=== PATIENT | male | born 1965 | race Two or more races ===

== ENCOUNTER 2016-09-27 16:54 | Emergency (ER) | payer OTHER ==
[~2016-09-27] VITALS: Ht 172.7 cm; Wt 72.6 kg
--- NOTE | 2016-09-27 17:09 | NUR ---
PRESENTS SELF FOR LEFT SHOULDER PAIN SP FALL-- POSSIBLE DISLOCATION. COMPLAINING OF 710/10 PAIN ON LEFT SHOULDER. DENIES HITTING HEAD. VSS
[2016-09-27] MEDS ORDERED: HYDROMORPHONE 1 MG/1 ML DISP.SYRIN ONE (17:14)
[2016-09-27] MEDS ORDERED: ONDANSETRON HCL/PF 4 MG/2 ML VIAL ONE (17:14)
--- NOTE | 2016-09-27 17:20 | NUR ---
RECEIVED VERBAL ORDER FROM DR. WALKER FOR PROPOFOL. ORDERS CARRIED OUT.
[2016-09-27] MEDS ORDERED: PROPOFOL 40 ML IV ONE (17:23)
[2016-09-27] MEDS ORDERED: HYDROMORPHONE 1 MG/1 ML DISP.SYRIN IV ONE (17:30)
[2016-09-27] MEDS ORDERED: ONDANSETRON HCL/PF 4 MG/2 ML VIAL IV ONE (17:30)
[2016-09-27] MEDS ORDERED: IV NS 0.9% 1,000 ML BAG IV ONE (17:30)
--- NOTE | 2016-09-27 17:50 | NUR ---
PROPOFOL 70MG IVP GIVEN PER MD VERBAL ORDER.
--- NOTE | 2016-09-27 17:53 | NUR ---
PROPOFOL 35MG IVP GIVEN PER MD VERBAL ORDER.
--- NOTE | 2016-09-27 17:57 | NUR ---
PROPOFOL 35MG IVP GIVEN PER MD VERBAL ORDER. WILL FF UP WITH MD TO OUT IN ORDER.
[2016-09-27 19:39] VITALS: BP 137/71
--- NOTE | 2016-09-27 19:39 | NUR ---
Patient discharged to home in stable condition. Written and verbal after care instructions given. Patient verbalizes understanding of instruction.
== END 2016-09-27 19:41 | disposition home or self-care (01) ==
LOC: ER 16:56
DX: S43.005A Unspecified dislocation of left shoulder joint, initial encounter (principal); E86.0 Dehydration; I10 Essential (primary) hypertension; W01.0XXA Fall on same level from slipping, tripping and stumbling without subsequent striking against object, initial encounter; Y92.89 Other specified places as the place of occurrence of the external cause; Y93.89 Activity, other specified; Y99.8 Other external cause status
CPT/HCPCS: 73020; 73030-TC; A4606; J7030; Z7610